=== PATIENT | male | born 1995 | race Caucasian/White ===

== ENCOUNTER 2019-02-18 05:34 | Observation (INO) | payer OTHER ==
[~2019-02-18 05:34] MED LIST: Buffered Lidocaine 1% SYRIN* 1 ML/SYRINGE INTRADERM ONE
[2019-02-18] MEDS ORDERED: Lactated Ringers 1000 ML Bag* 1,000 ML IV SCH ×2 (06:00→11:00)
[2019-02-18] MEDS ORDERED: Famotidine IV* 10 MG/ML 2 ML (20 mg) IV ONE (06:00)
[2019-02-18] MEDS ORDERED: Dexamethasone IV* 4 MG/ML 1 ML (4 MG) IV SLOW PU ONE (06:00)
[2019-02-18] MEDS ORDERED: Famotidine IV* 10 MG/ML 2 ML (20 mg) ONE (06:16)
[2019-02-18] MEDS ORDERED: ceFAZolin 2 GM in NS PREMIX(*) 2 GM/100 ML BAG IVPB ONE (06:16)
[2019-02-18] MEDS ORDERED: Buffered Lidocaine 1% SYRIN* 1 ML/SYRINGE INTRADERM ONE (06:16)
[2019-02-18] MEDS ORDERED: Dexamethasone IV* 4 MG/ML 1 ML (4 MG) ONE (06:16)
[2019-02-18] MEDS ORDERED: Bupivacaine 0.25% W/EPI* 10 ML SDV ONE (07:11)
[2019-02-18] MEDS ORDERED: Bacitracin INJECTION* 50,000 UNITS ONE (07:11)
[2019-02-18] MEDS ORDERED: Midazolam* 1 MG/ML 5 ML VIAL (5 MG) ONE (07:18)
[2019-02-18] MEDS ORDERED: Propofol* 10 MG/ML 20 ML BTL ONE (07:18)
[2019-02-18] MEDS ORDERED: fentaNYL* 50 MCG/ML 5 ML VIAL (250 MCG VIAL) ONE (07:18)
[2019-02-18] MEDS ORDERED: Rocuronium* 10 MG/ML VIAL ONE (07:19)
[2019-02-18] MEDS ORDERED: Lidocaine 2% PF * 5 ML VIAL ONE (07:19)
[2019-02-18] MEDS ORDERED: Phenylephrine 40 MCG/ML SYRINGE ONE (08:47)
[2019-02-18] MEDS ORDERED: EPHEDrine (Pressors)* 50 MG/ML VIAL ONE (08:48)
[2019-02-18] MEDS ORDERED: Ondansetron INJ* 2 MG/ML VIAL ONE (09:31)
[2019-02-18] MEDS ORDERED: HYDROcodone/ACETAMIN 5-325 MG* 1 TAB PO PRN ×2 (10:19→10:53)
[2019-02-18] MEDS ORDERED: PROCHLORPERAZINE INJ 5 MG/ML 2 ML VIAL IV PRN (10:53)
[2019-02-18] MEDS ORDERED: fentaNYL* 50 MCG/ML 2 ML VIAL (100 MCG VIAL) IV PRN (10:53)
[2019-02-18] MEDS ORDERED: oxyCODONE/Acetamin 5/325 MG* TAB PO PRN (10:53)
[2019-02-18] MEDS ORDERED: Naloxone* 0.4 MG/ML 1 ML VIAL IV PRN (10:53)
[2019-02-18 15:47] VITALS: BP 114/53
--- NOTE | 2019-02-18 17:20 | OP ---
DATE OF OPERATION: 02/18/19 - ROOM #353 DATE OF : 89 SURGEON: Cl Randolph MD LACQUERER: TEE Carroll. The case was done with the assistance of surgical PA because of the complexity of the case. ANESTHESIA: General. PRE-OP DIAGNOSIS: Left L5-S1 herniated nucleus pulposus. POST-OP DIAGNOSIS: Left L5-S1 herniated nucleus pulposus. OPERATIVE PROCEDURE: The patient underwent left L5-S1 minimally invasive hemilaminotomy, medial partial facetectomy, and diskectomy at L5-S1 with intraoperative microscope. ESTIMATED BLOOD LOSS: 20 cc. COMPLICATIONS: None. SUMMARY: The patient is a very pleasant 23-year-old gentleman with complaints of back pain radiating to the left lower extremity with MRI findings consistent with large left L5-S1 disk herniation. After failing conservative treatment modalities, he was offered the option of surgical intervention. After explaining the expectations, limitations, possible complications of the procedure to the patient and his family including his father, mother, and girlfriend, with complications including, but not limited to bleeding, infection , risk of injury to adjacent structures, coma, paralysis, , stroke, blindness, cancer, instability, adjacent level disease, spinal fluid leak, postoperative hematoma, loss of bladder or bowel control, injury to intraabdominal contents, need for prolonged ICU stay, need for tracheostomy or gastrostomy, need for additional procedures, scar formation, deep venous thrombosis, pulmonary embolism, anesthesia risks; the patient was agreeable to proceed with surgery and informed consent was obtained. The patient of note had preoperative weakness on the left lower extremity especially to the left foot plantarflexion and decreased sensation in the left S1 distribution. The patient understood that his condition may not improve and in fact may get worse after surgery and that he may need to have additional procedures in the future. He also understood that the operative plan may be modified according to intraoperative findings and conditions and that the case may be abandoned or done in more than 1 stages. He also understands that he may require prolonged hospitalization, prolonged ICU stay, and need for tracheostomy or gastrostomy. DESCRIPTION OF PROCEDURE: The patient was brought to the operating room and was placed under general anesthesia by the anesthesia team. He was carefully positioned prone on the Sam frame on the Rodrigue table and all bony prominences were meticulously padded. His skin was prepped and draped in the standard fashion, and after appropriate surgical pause and patient identification, a small paramedian incision over the L5-S1 disk space was marked on the skin with the assistance of intraoperative fluoroscopic imaging and the skin was infiltrated with local anesthetic. A #10 surgical blade was used to incise the skin. The incision was carried down to the subcutaneous tissue with Bovie cautery. The dorsal fascia was incised with #10 surgical blade ; and over a series of dilators, the [employer] tubular retractor system was introduced into the field. Intraoperative microscope was brought into the field , and after exposing the left L5 kwadwo-lamina and the medial portion of the L5- S1 facet, a high-speed drill and Kerrison punches were used to fashion a small left hemilaminectomy of L5 and partial medial facetectomy. The ligamentum flavum was gently removed, and the thecal sac and the S1 nerve root were gently exposed. A large disk bulging was identified under the S1 nerve root as expected from the preoperative MRI, extended somewhat caudally. The thecal sac and the nerve root were gently retracted medially, and after incising the posterior longitudinal ligament and the annulus fibrosus with #11 surgical blade , the diskectomy was performed with a series of pituitary rongeurs and down- pushing curettes. At the end of the diskectomy, the thecal sac and the nerve root were found to be free of any pressure phenomenon. After copious irrigation , confirmation of meticulous hemostasis, and meticulous inspection, the tubular retractor was gently removed. With achieving meticulous hemostasis and infiltrating the paraspinal musculature with local anesthetic, Marcaine with epinephrine was used for local anesthesia in the whole case. Then, the wound was closed by layers and the dorsal fascia was approximated with 0 interrupted Vicryl sutures while the subcutaneous tissue was approximated with inverted interrupted 2-0 Vicryl sutures. The skin was covered with Dermabond and sterile dressings. At the end of the procedure, all counts were reported to be correct. The patient remained hemodynamically stable throughout the case and he was turned supine, was extubated, and was transferred to recovery in excellent condition. The case was done with the assistance of joseph OLIVEIRA because of the complexity of the case. [id number]/[facility] #: [id number] ETHEL
--- NOTE | 2019-02-22 12:18 | DS ---
DISCHARGE SUMMARY: DATE OF ADMISSION: 02/18/19 DATE OF DISCHARGE: 02/18/19 ATTENDING PHYSICIAN: Dr. Randolph.* (DICTATED BY TEE MERRITT) DIAGNOSIS ON ADMISSION: Left L5-S1 herniated nucleus pulposus. DIAGNOSIS ON DISCHARGE: Left L5-S1 herniated nucleus pulposus. PROCEDURE: Left L5-S1 minimally invasive hemilaminotomy with medial partial facetectomy and diskectomy at L5-S1 with intraoperative microscope. DISPOSITION ON DISCHARGE: Good. PLACE OF DISCHARGE: Home. HOSPITAL COURSE: This patient is a very pleasant 23-year-old gentleman with a complaint of back pain radiating down the left lower extremity with MRI findings consistent with large left L5-S1 disk herniation. After failing conservative treatment modalities, he was offered surgical intervention. After explaining the expectations, limitations, possible complications of the procedure to the patient and his family including his father, mother, and girlfriend, with complications, the patient was consented for surgery. He underwent the procedure and was admitted to short stay unit for observation. The patient did really well. His pain was well controlled, he was ambulating independently with no assistance hours after the surgery. The patient felt he was stable enough to go home, so he was discharged that day with instructions, which included no heavy lifting, bending, twisting, or driving. Follow up with primary care in 1 week. Follow up with Neurosurgery within 1 week for wound check. Also avoid hot tubs and pools. He was discharged with pain medication. He understood the instructions that were given. The patient did well. Thank you for allowing me to be a part of this patient's care. TEE MERRITT [id number]/[facility] #: [id number] ETHEL
== END 2019-02-18 16:15 | disposition home or self-care (01) ==
LOC: OR 05:34 → SSU 10:20
PROVIDERS: ADMIT Neurological Surgery; ATTEND Neurological Surgery
DX: M51.26 Other intervertebral disc displacement, lumbar region (principal); M54.9 Dorsalgia, unspecified; M54.16 Radiculopathy, lumbar region; F17.210 Nicotine dependence, cigarettes, uncomplicated
CPT/HCPCS: 36415; 76000; 85730; A9270-GY; G0378; J0690; J1100; J2250; J2405; J2704; J3010